=== PATIENT | female | born 1950 | race Two or more races ===

== ENCOUNTER 2021-02-12 08:34 | Outpatient (CLI) | payer OTHER ==
[~2021-02-12 08:34] MED LIST: CIPRO500 MG PO; FEXOFENADINE H180 MG PO; FLONASE16 G1 NS
== END 2021-02-12 08:40 | disposition home or self-care (01) ==
LOC: RAD 08:34
PROVIDERS: ATTEND Surgery Plastic and Reconstructive Surgery
DX: Z01.811 Encounter for preprocedural respiratory examination (principal)